=== PATIENT | female | born 1990 | race American Indian/Alaskan Native ===

== ENCOUNTER 2022-05-24 04:24 | Emergency (ER) | payer SELFPAY ==
[2022-05-24 05:13] LABS: ESTIMATED GFR 100 mL/min (>60)
[2022-05-24] MEDS ORDERED: Iopamidol 612 MG/ML 100 ML Bottle IV STA (05:30)
[2022-05-24] MEDS ORDERED: Sodium Chloride 0.9% 50 ML IV STA (05:31)
== END 2022-05-24 08:04 | disposition home or self-care (01) ==
LOC: JP.ED 04:24
DX: N30.00 Acute cystitis without hematuria (principal); K62.5 Hemorrhage of anus and rectum; Z79.899 Other long term (current) drug therapy
CPT/HCPCS: 36415; 74177; 80053; 80307; 81001; 82272; 84703; 85025; 86140; 99284; J3490; Q9967

== ENCOUNTER 2022-08-14 20:26 | Emergency (ER) | payer SELFPAY ==
[2022-08-14 21:00] LABS: ESTIMATED GFR 117 mL/min (>60)
== END 2022-08-15 09:27 ==
LOC: JP.ED 20:26
DX: F33.1 Major depressive disorder, recurrent, moderate (principal); F41.0 Panic disorder [episodic paroxysmal anxiety]; R44.0 Auditory hallucinations; R44.1 Visual hallucinations; F10.10 Alcohol abuse, uncomplicated; Z86.16 Personal history of COVID-19; Z20.822 Contact with and (suspected) exposure to COVID-19
CPT/HCPCS: 36415; 80053; 80305-QW; 80307; 81001; 81025; 85025; 99285; U0002

== ENCOUNTER 2022-10-13 03:04 | Emergency (ER) | payer SELFPAY ==
[2022-10-13 03:46] LABS: ESTIMATED GFR 117 mL/min (>60)
[2022-10-13 05:01] LABS: CORONAVIRUS COVID-19 NAA NEGATIVE (NEGATIVE)
[2022-10-13] MEDS ORDERED: Nitrofurantoin Monohydrate/Macrocrystalline 100 MG Cap PO ONE (05:05)
[2022-10-13] MEDS ORDERED: Buprenorphine/Naloxone 2-0.5 MG Tab.SL SL SCH (09:00)
[2022-10-13] MEDS ORDERED: Nitrofurantoin Monohydrate/Macrocrystalline 100 MG Cap PO SCH (21:00)
== END 2022-10-13 16:01 ==
LOC: JP.ED 03:04
DX: T43.222A Poisoning by selective serotonin reuptake inhibitors, intentional self-harm, initial encounter (principal); D50.9 Iron deficiency anemia, unspecified; R82.71 Bacteriuria; Z86.16 Personal history of COVID-19; Z20.822 Contact with and (suspected) exposure to COVID-19
CPT/HCPCS: 0241U; 36415; 80053; 80143; 80179; 80305-QW; 80307; 81001; 81025; 82800; 84443; 85025; 93010; 99285; A9270-GY

== ENCOUNTER 2022-11-22 13:42 | Observation (INO) | payer SELFPAY ==
[2022-11-22] MEDS ORDERED: cefTRIAXone 1 GM Vial IM ONE (16:02)
[2022-11-22] MEDS ORDERED: Lidocaine 1% 5 ML VIAL INJECT ONE (16:10)
[2022-11-22] MEDS ORDERED: HYDROmorphone 0.5 MG/0.5 ML Syringe IM ONE (16:17)
[2022-11-22] MEDS ORDERED: Sodium Chloride 0.9% 1,000 ML IV SCH (16:45)
[2022-11-22 17:41] LABS: CORONAVIRUS COVID-19 NAA NEGATIVE (NEGATIVE)
[2022-11-22] MEDS: Dextrose 5%-0.9% NaCl 1,000 ML IV SCH (19:31)
[2022-11-23 05:58] LABS: ESTIMATED GFR 127 mL/min (>60)
[2022-11-23] MEDS: HYDROmorphone 0.5 MG/0.5 ML Syringe IVPUSH PRN ×2 (08:20→12:07)
[2022-11-23] MEDS: Dextrose 5%-0.9% NaCl 1,000 ML IV SCH (08:20)
[2022-11-23] MEDS: Potassium Chloride 20 MEQ Tab.ER PO SCH ×2 (12:07→17:45)
[2022-11-23] MEDS: Sodium Ferric Gluconate Cmplex 250 MG in Sodium Chloride 0.9% 100 ML IV SCH (12:07)
[2022-11-23] MEDS ORDERED: cefTRIAXone 1 GM in Sodium Chloride 0.9% 50 ML IV SCH (16:00)
[2022-11-23] MEDS: metroNIDAZOLE 250 MG Tab PO SCH (17:45)
[2022-11-23] MEDS: Sodium Chloride 0.9% 1,000 ML IV SCH ×2 (17:47→19:44)
[2022-11-24] MEDS: Sodium Chloride 0.9% 1,000 ML IV SCH (03:37)
[2022-11-24] MEDS: metroNIDAZOLE 250 MG Tab PO SCH (05:22)
[2022-11-24 08:13] LABS: CHLAMYDIA TRACHOMATIS, NAA Negative (Negative); NEISSERIA GONORRHOEAE, NAA Negative (Negative)
[2022-11-24] MEDS: Potassium Chloride 20 MEQ Tab.ER PO SCH (08:29)
[2022-11-24] MEDS: HYDROmorphone 0.5 MG/0.5 ML Syringe IVPUSH PRN (08:35)
[2022-11-24] MEDS ORDERED: Ferrous Sulfate 325 MG Tab PO ONE (11:15)
[2022-11-24] MEDS: Sodium Ferric Gluconate Cmplex 250 MG in Sodium Chloride 0.9% 100 ML IV SCH (12:00)
== END 2022-11-24 12:10 ==
LOC: JP.ED 13:42 → JP.MS 17:57
PROVIDERS: ADMIT Internal Medicine; ATTEND Internal Medicine
DX: N73.9 Female pelvic inflammatory disease, unspecified (principal); N39.0 Urinary tract infection, site not specified; F10.20 Alcohol dependence, uncomplicated; E87.6 Hypokalemia; D50.9 Iron deficiency anemia, unspecified; F32.A Depression, unspecified; F41.0 Panic disorder [episodic paroxysmal anxiety]; F17.210 Nicotine dependence, cigarettes, uncomplicated; Z20.822 Contact with and (suspected) exposure to COVID-19
CPT/HCPCS: 0241U; 36415; 76857; 80048; 80053; 81001; 81025; 82607; 82728; 82746; 83550; 85025; 86593; 87070; 87491; 87591; 96360; 96372; 99284; 99285; A9270; J0696; J1170; J2916; J3490; J7030; 96361; 96365; 96366; 96375; 96376; G0378